=== PATIENT | male | born 1965 | race African-American/Black ===

== ENCOUNTER 2016-10-13 17:37 | Emergency (ER) | payer OTHER, MEDICARE ==
[~2016-10-13] VITALS: Ht 188 cm; Wt 156.3 kg
[~2016-10-13 17:37] MED LIST: ASPI325T4 PO; ATOR40TA78 PO; EPLE50TA PO; EPLE50TA3 PO; METO50TA82 PO; OMEP40CA6 PO; POTA10TA11 PO; POTA10TA90 PO; PRAZ2CAP2 PO; PRAZ5CAP2 PO
[2016-10-13 17:41] VITALS: BP 157/89
[2016-10-13] MEDS ORDERED: KETOROLAC 30 MG/1 ML IM ONE (18:00)
[2016-10-13] MEDS ORDERED: KETOROLAC 30 MG/1 ML ONE (18:08)
[2016-10-13 18:37] LABS: BLOOD UREA NITROGEN 13 mg/dL (7-18)
== END 2016-10-13 19:49 | disposition home or self-care (01) ==
LOC: ED 19:00
DX: M79.641 Pain in right hand (principal)
CPT/HCPCS: 36415; 73130; 80048; 82040; 84550; 85025; 93005; 96372; 99285; J1885